=== PATIENT | male | born 1970 | race African-American/Black ===

== ENCOUNTER 2016-12-28 22:30 | Inpatient (IN) | payer SELFPAY ==
[~2016-12-28] VITALS: Ht 177.8 cm; Wt 77.9 kg
[~2016-12-28 22:30] MED LIST: INSU100V2 SQ; METF1000 PO; NOVONP2 SQ
[2016-12-28 22:34] VITALS: BP 158/92; PULSE 110; RESP 20; TEMP 100; O2SAT 98
[2016-12-28] MEDS ORDERED: CLINDAMYCIN INJ 900 MG in SODIUM CHLORIDE 0.9% INJ 100 ML IV ONE (23:30)
[2016-12-28] MEDS ORDERED: KETOROLAC TROMETHAMINE 30 MG/ML (IVP) VIAL IV PUSH ONE (23:30)
[2016-12-28] MEDS ORDERED: SODIUM CHLOR 0.9% 1000 ML INJ 1,000 ML IV ONE (23:30)
[2016-12-28] MEDS ORDERED: INSULIN HUMAN REGULAR 1,000 UNITS/10 ML VIAL IV PUSH ONE (23:30)
[2016-12-28] MEDS ORDERED: ACETAMINOPHEN 325 MG TAB PO ONE (23:30)
[2016-12-28] MEDS ORDERED: SODIUM CHLORIDE 0.9% FLUSH 5 ML FLUSH IVF PRN (23:30)
[2016-12-28 23:35] VITALS: BP 171/96; PULSE 84; RESP 18; O2SAT 96
[2016-12-29] VITALS (13 sets, daily range): BP systolic 100–157; BP diastolic 55–108; PULSE 65–86; RESP 16–20; TEMP 97.3–98.9; O2SAT 97–99
[2016-12-29 00:04] LABS: HEMATOCRIT 48.6 % (39.0-51.0); MEAN CELL VOLUME 86.6 FL (80.0-100.0); MEAN CORPUSCULAR HEMOGLOBIN 28.6 PG (27.0-34.0); PLATELET COUNT 404 TH/MM3 (150-450); RED BLOOD COUNT 5.61 MIL/MM3 (4.50-5.90); RED CELL DISTRIBUTION WIDTH 12.8 % (11.6-17.2); WHITE BLOOD COUNT 15.5 TH/MM3 (4.0-11.0)
[2016-12-29 00:05] LABS: HEMO FLAGS AUTO DIFF
[2016-12-29 00:11] LABS: POTASSIUM 4.1 MEQ/L (3.5-5.1)
[2016-12-29 00:13] LABS: BICARBONATE 25.1 MEQ/L (21.0-32.0)
[2016-12-29 00:25] LABS: MYELOCYTES 1 % (0-0); NEUTROPHIL # MANUAL DIFF 10.4 TH/MM3 (1.8-7.7); POLYS (SEG NEUTROPHILS) 66 % (16-70); WBC DIFF SAMPLE 100
[2016-12-29 00:26] LABS: PLATELET ESTIMATE SMEAR NORMAL (NORMAL); PLATELET MORPHOLOGY CLUMPED (NORMAL); SCAN/DIFF FINAL DIFF MANUAL
--- NOTE | 2016-12-29 01:05 | PD ---
HPI Chief Complaint: Oral / Dental Pain or Problem Time Seen by Provider: 23:24 Travel History International Travel<30 days: No Contact w/Intl Traveler<30days: No Traveled to known affect area: No History of Present Illness HPI 46-year-old male presents to the emergency department for complaint of 4 days of dental/jaw pain and swelling. Patient states symptoms have not improved using [id number] Tylenol. Patient is diabetic. Patient has not followed up with his dentist. Patient denies any difficulty with swallowing or submandibular pain. Patient denies any fever or chills. Patient states that he is diabetic and that his blood sugars have been elevated in the past 4 days but typically run around 200. Patient's had no cold symptoms. Patient denies any chest pain or shortness of breath. Patient's had no nausea or vomiting. Polyphagia or polyuria or polydipsia. Patient rates dental pain/jaw pain 8/10 intensity. PFSH Past Medical History Narrative Medical Dyslipidemia diabetes hypertension tobacco use nursing notes reviewed Blood Disorders: No Cancer: No High Cholesterol: Yes (PT DENIES) Diabetes: Yes Patient Takes Glucophage: Yes Diminished Hearing: No Endocrine: No Gastrointestinal Disorders: No Genitourinary: No Hypertension: Yes Immune Disorder: No Musculoskeletal: No Psychiatric: No Reproductive: No Immunizations Current: Yes Tetanus Vaccination: Unknown Influenza Vaccination: No Past Surgical History Surgical History: No Previous Surgery Other Surgery: No Social History Alcohol Use: No Tobacco Use: Yes (/2 PPD) Substance Use: No (COKE IN THE PAST) Allergies-Medications (Allergen,Severity, Reaction): Coded Allergies: No Known Allergies (Verified , 10/01/16) Reported Meds & Prescriptions Reported Meds & Active Scripts Active Reported Humulin R Inj (Insulin Human Regular) 1,000 Unit/10 Ml Vial 2-12 Units SQ TIDACHS Max dose at bedtime:( )units; sugars < 70 (0)units; sugars 150-199, (2)units; sugars 200-249,(4)units; sugars 250-299, (7)units; sugars 300-349,(10)units; sugars more than 349,(12)units. Metformin (Metformin HCl) 1,000 Mg Tab 1,000 Mg PO BIDPC With meals Novolin N Inj (Insulin Human NPH) 100 Unit/Ml Inj 30 Units SQ BID Review of Systems Except as stated in HPI: all other systems reviewed are Neg General / Constitutional: No: Fever, Chills HENT: Positive: Dental Difficulties, No: Congestion Cardiovascular: No: Chest Pain or Discomfort Respiratory: No: Cough, Shortness of Breath Gastrointestinal: No: Nausea, Vomiting Genitourinary: No: Decreased Urinary Output Musculoskeletal: No: Myalgias, Arthralgias Skin: No Rash Neurologic: No: Weakness Psychiatric: No: Anxiety Hematologic/Lymphatic: No: Lymph Node Enlargement Physical Exam Narrative GENERAL: Well-developed well-nourished male in no acute distress no respiratory distress temperature 100.0F SKIN: Warm and dry. HEAD: Normocephalic. EYES: No scleral icterus. No injection or drainage. ENT mucous membranes moist airway is patent mild gingival soft tissue swelling aligned with the #30 and 31 dentition NECK: Supple, trachea midline. No JVD or lymphadenopathy. CARDIOVASCULAR: Regular rate and rhythm without murmurs, gallops, or rubs. RESPIRATORY: Breath sounds equal bilaterally. No accessory muscle use. GASTROINTESTINAL: Abdomen soft, non-tender, nondistended. MUSCULOSKELETAL: No cyanosis, or edema. BACK: Nontender without obvious deformity. No CVA tenderness. Data Data Last Documented VS Vital Signs Date Time Temp Pulse Resp B/P Pulse Ox O2 Delivery O2 Flow Rate FiO2 12/29/16 02:53 20 12/29/16 02:49 97.8 65 115/65 98 12/29/16 02:49 21 12/29/16 02:15 Room Air Orders Basic Metabolic Panel (Bmp) (12/28/16 23:24) Complete Blood Count With Diff (12/28/16 23:24) Blood Culture (12/28/16 23:24) Iv Access Insert/Monitor (12/28/16 23:24) Sodium Chloride 0.9% Flush (Ns Flush) (12/28/16 23:30) Clindamycin Inj (Cleocin Inj) (12/28/16 23:30) Sodium Chlor 0.9% 1000 Ml Inj (Ns 1000 M (12/28/16 23:30) Acetaminophen (Tylenol) (12/28/16 23:30) Ketorolac Inj (Toradol Inj) (12/28/16 23:30) Insulin Human Regular Inj (Novolin R Inj (12/28/16 23:30) Blood Glucose (12/29/16 00:00) Lactic Acid (12/29/16 01:14) Beta Hydroxybutyrate (Acetone) (12/29/16 01:14) Sodium Chlor 0.9% 1000 Ml Inj (Ns 1000 M (12/29/16 02:30) Blood Gas Venous Ph (12/29/16 02:16) Admit Order (Ed Use Only) (12/29/16 ) ^ Saline Lock (12/29/16 03:07) Resp Oxygen Kevin C Titrat 1-4 L (12/29/16 ) ^ Notify Dr: Other (12/29/16 03:07) Sodium Chloride 0.9% Flush (Ns Flush) (12/29/16 09:00) Sodium Chloride 0.9% Flush (Ns Flush) (12/29/16 03:15) Labs Laboratory Tests Test 12/28/16 12/29/16 12/29/16 23:40 01:30 02:40 White Blood Count 15.5 TH/MM3 Red Blood Count 5.61 MIL/MM3 Hemoglobin 16.0 GM/DL Hematocrit 48.6 % Mean Corpuscular Volume 86.6 FL Mean Corpuscular Hemoglobin 28.6 PG Mean Corpuscular Hemoglobin 33.0 % Concent Red Cell Distribution Width 12.8 % Platelet Count 404 TH/MM3 Mean Platelet Volume 9.0 FL Neutrophils (%) (Auto) % Lymphocytes (%) (Auto) % Monocytes (%) (Auto) % Eosinophils (%) (Auto) % Basophils (%) (Auto) % Neutrophils # (Auto) TH/MM3 Lymphocytes # (Auto) TH/MM3 Monocytes # (Auto) TH/MM3 Eosinophils # (Auto) TH/MM3 Basophils # (Auto) TH/MM3 CBC Comment AUTO DIFF Differential Total Cells 100 Counted Neutrophils % (Manual) 66 % Lymphocytes % 19 % Monocytes % 14 % Neutrophils # (Manual) 10.4 TH/MM3 Myelocytes 1 % Differential Comment FINAL DIFF MANUAL Platelet Estimate NORMAL Platelet Morphology Comment CLUMPED Red Cell Morphology Comment NORMAL Sodium Level 133 MEQ/L Potassium Level 4.1 MEQ/L Chloride Level 95 MEQ/L Carbon Dioxide Level 25.1 MEQ/L Anion Gap 13 MEQ/L Blood Urea Nitrogen 21 MG/DL Creatinine 1.40 MG/DL Estimat Glomerular Filtration 67 ML/MIN Rate Random Glucose 410 MG/DL Calcium Level 9.5 MG/DL Lactic Acid Level 0.9 mmol/L B-Hydroxybutyrate 1.17 MMOL/L Venous Blood pH 7.33 [facility] Medical Decision Making Medical Screen Exam Complete: Yes Emergency Medical Condition: Yes Medical Record Reviewed: Yes Interpretation(s) CBC & BMP Diagram 12/28/16 23:40 venous pH: 7.33, decreased lactic acid:0.9, wnl bhb: 1.17, elevated Differential Diagnosis Dental abscess, gingival abscess, apical abscess, dentalgia, uncontrolled diabetes, DKA Narrative Course IV access obtained specimens collected and sent for resulting blood culture obtained due to temperature 100.0F; patient administered clindamycin 900 mg IV piggyback, Toradol 30 mg IV times one dose 1 L normal saline and in view of blood sugar elevation regular insulin 8 units IV with plan for blood sugar recheck at one hour after administration of IV insulin @ 0100 BS decreased to 323 from 438; ivf infusing and antibiotic being administered; patient reports he fells much better Labs resulted based on white count 15,500 and heart rate greater than 90 patient does meet SIRS criteria and patient also with area of dental infection/ dental abscess as source meets sepsis criteria and as such lactic acid added as well as beta hydroxybutyric acid level be added to labs. Patient continued to receive IV antibiotic and IV fluid bolus has not completely infused. Patient will have recheck blood sugar at 2 AM @ 2:14 B; lactic acid is not elevated at 0.9; acetone is elevated at 1.17 , however, patient's bicarbonate is within normal range at 25.1 meq/l and anion gap is not elevated at 13 meq/l. VSS: T:98.1F, RR: 18, HR:87, O2sat 99% RA; BP: 104/73; Patient reports he is desirous of being discharged to home is aware of lab results response to medications and has access to home medications although needs refills of his insulin and metformin; prior to making disposition will check a venous pH; patient reports at this time he has not been taking his metformin and insulin because he was taking tylenol and was afraid to "mix medications". @ 3:00 pH: 7.33, patient with decreased/acidotic pH with elevated acetone and not taking his insulin or metformin with dental abscess/infection -- will admit for metabolic correction, dehydration, early dka and ongoing iv antibiotics Procedures EKG Prior to Arrival: No Sepsis Criteria SIRS Criteria (2 or more): Heart rate over 90, WBC > 63484, < 4000 or > 10% bands Sepsis Criteria (SIRS+source): Infect source susp/known (dental abscess) Criteria Outcome: Meets SIRS criteria, Meets sepsis criteria Physician Communication Physician Communication case discussed with [facility] will admit as obs Diagnosis Primary Impression: Dental abscess Additional Impressions: Poorly controlled diabetes mellitus Dehydration Admitting Information Admitting Physician Requests: Observation Brianda Murillo MD Dec 29, 2016 01:05
[2016-12-29] MEDS ORDERED: SODIUM CHLOR 0.9% 1000 ML INJ 1,000 ML IV ONE (02:30)
[2016-12-29] MEDS ORDERED: SODIUM CHLORIDE 0.9% FLUSH 5 ML FLUSH IVF PRN (03:15)
[2016-12-29] MEDS: SODIUM CHLOR 0.9% 1000 ML INJ 1,000 ML IV SCH ×3 (03:51→17:11)
[2016-12-29] MEDS ORDERED: BISACODYL 10 MG SUPP PR PRN (04:00)
[2016-12-29] MEDS ORDERED: ONDANSETRON HCL 4 MG/2 ML VIAL IVP PRN (04:00)
[2016-12-29] MEDS ORDERED: ACETAMINOPHEN 325 MG TAB PO PRN (04:00)
[2016-12-29] MEDS ORDERED: SODIUM CHLORIDE 0.9% FLUSH 5 ML FLUSH FLUSH PRN (04:00)
[2016-12-29] MEDS ORDERED: DEXTROSE 50% IN WATER 50 ML VIAL(D50) IV PUSH PRN (04:00)
[2016-12-29] MEDS ORDERED: GLUCAGON 1 MG/ML VIAL OTHER PRN (04:00)
[2016-12-29] MEDS: ACETAMINOPHEN/HYDROcodone 325 MG/5 MG TAB PO PRN ×3 (05:07→20:48)
[2016-12-29] MEDS: INSULIN ASPART SUPPLEMENTAL SCALE SQ SCH ×4 (06:06→20:58)
[2016-12-29] MEDS ORDERED: CLINDAMYCIN INJ 900 MG in SODIUM CHLORIDE 0.9% INJ 100 ML IV SCH (08:00)
[2016-12-29 08:37] LABS: HEMATOCRIT 40.8 % (39.0-51.0); MEAN CELL VOLUME 87.1 FL (80.0-100.0); MEAN CORPUSCULAR HEMOGLOBIN 28.9 PG (27.0-34.0); MEAN CORPUSCULAR HGB CONC 33.2 % (32.0-36.0); PLATELET COUNT 395 TH/MM3 (150-450); RED BLOOD COUNT 4.68 MIL/MM3 (4.50-5.90); RED CELL DISTRIBUTION WIDTH 13.2 % (11.6-17.2); WHITE BLOOD COUNT 15.8 TH/MM3 (4.0-11.0)
[2016-12-29 08:41] LABS: HEMO FLAGS AUTO DIFF
[2016-12-29] MEDS: SODIUM CHLORIDE 0.9% FLUSH 5 ML FLUSH FLUSH SCH ×2 (09:00→19:52)
[2016-12-29] MEDS ORDERED: SODIUM CHLORIDE 0.9% FLUSH 5 ML FLUSH IVF SCH (09:00)
[2016-12-29 09:08] LABS: ALKALINE PHOSPHATASE 120 U/L (45-117); ALT (GPT) 22 U/L (12-78); ANION GAP 8 MEQ/L (5-15); AST (GOT) 13 U/L (15-37); BICARBONATE 23.6 MEQ/L (21.0-32.0); BLOOD UREA NITROGEN 14 MG/DL (7-18); CHLORIDE 104 MEQ/L (98-107); GLOMERULAR FILTRATION RATE 122 ML/MIN (>89); POTASSIUM 4.1 MEQ/L (3.5-5.1); SODIUM (NA) 136 MEQ/L (136-145); TOTAL BILIRUBIN ADULT 1.1 MG/DL (0.2-1.0)
[2016-12-29] MEDS ORDERED: KETOROLAC TROMETHAMINE 60 MG/2 ML (IM) VIAL IM PRN ×2 (09:15→10:15)
[2016-12-29 09:57] LABS: BASOPHILS 1 % (0-2); EOSINOPHILS 1 % (0-4); NEUTROPHIL # MANUAL DIFF 10.3 TH/MM3 (1.8-7.7); POLYS (SEG NEUTROPHILS) 65 % (16-70); WBC DIFF SAMPLE 100
[2016-12-29 09:58] LABS: PLATELET ESTIMATE SMEAR NORMAL (NORMAL); PLATELET MORPHOLOGY NORMAL (NORMAL); SCAN/DIFF FINAL DIFF MANUAL
[2016-12-29] MEDS: CLINDAMYCIN INJ 900 MG in SODIUM CHLORIDE 0.9% INJ 100 ML IV SCH ×2 (10:18→18:18)
[2016-12-29] MEDS ORDERED: KETOROLAC TROMETHAMINE 30 MG/ML (IVP) VIAL IV PUSH ONE (10:30)
--- NOTE | 2016-12-29 10:33 | HHI.HP ---
HPI Service [facility] Primary Care Physician No Primary Care Physician Admission Diagnosis dental abscess; uncontrolled DM/early dka Diagnoses: Chief Complaint: Jaw pain Travel History International Travel<30 Days: No Contact w/Intl Traveler <30 Da: No Traveled to Known Affected Are: No Sepsis Criteria SIRS Criteria (2 or more): WBC > 33882, < 4000 or > 10% bands Sepsis Criteria (SIRS+source): Infect source susp/known Severe Sepsis (+one): Acute Oliguria/Renal Failure History of Present Illness Patient is a 46-year-old gentleman with diabetes who had about 5 days of right sided jaw pain which he says is related to a dental abscess. Visit took Tylenol at home without relief and can have increased swelling and increased pain so he came to the emergency room. Patient has had low-grade temperatures at home and here his symptoms been 100. He is leukocytosis and tachycardia with elevated blood pressure. Patient admitted to the hospital for IV antibiotics and treatment of presumed dental abscess as well as hyperglycemia. His severe right sided jaw pain is relieved with Toradol and with morphine. Review of Systems Constitutional: COMPLAINS OF: Fatigue, Weight loss, DENIES: Diaphoretic episodes, Fever, Weight gain, Chills, Dizziness, Change in appetite, Night Sweats Endocrine: DENIES: Heat/cold intolerance, Polydipsia, Polyuria, Polyphagia Eyes: DENIES: Blurred vision, Diplopia, Eye inflammation, Eye pain, Vision loss , Photosensitivity, Double Vision Ears, nose, mouth, throat: DENIES: Tinnitus, Hearing loss, Vertigo, Nasal discharge, Oral lesions, Throat pain, Hoarseness, Ear Pain, Running Nose, Epistaxis, Sinus Pain, Toothache, Odynophagia Respiratory: DENIES: Apneas, Cough, Snoring, Wheezing, Hemoptysis, Sputum production, Shortness of breath Cardiovascular: DENIES: Chest pain, Palpitations, Syncope, Dyspnea on Exertion , PND, Lower Extremity Edema, Orthopnea, Claudication Gastrointestinal: DENIES: Abdominal pain, Black stools, Bloody stools, Constipation, Diarrhea, Nausea, Vomiting, Difficulty Swallowing, Anorexia Genitourinary: DENIES: Sexual dysfunction, Urinary frequency, Urinary incontinence, Urgency, Hematuria, Dysuria, Nocturia, Penile Discharge, Testicular Pain, Testicular Swelling Musculoskeletal: COMPLAINS OF: Muscle aches, Joint Swelling, DENIES: Joint pain, Stiffness, Back pain, Neck pain Integumentary: DENIES: Abnormal pigmentation, Nail changes, Pruritus, Rash Hematologic/lymphatic: DENIES: Bruising, Lymphadenopathy Immunologic/allergic: DENIES: Eczema, Urticaria Neurologic: DENIES: Abnormal gait, Headache, Localized weakness, Paresthesias, Seizures, Speech Problems, Tremor, Poor Balance Psychiatric: DENIES: Anxiety, Confusion, Mood changes, Depression, Hallucinations, Agitation, Suicidal Ideation, Homicidal Ideation, Delusions Past Family Social History Past Medical History DM2 Past Surgical History Denies Reported Medications Reviewed in the EMR Allergies: Coded Allergies: No Known Allergies (Verified , 10/01/16) Active Ordered Medications Reviewed in the EMR Family History DM in Mom Dad of colon CA Social History Tobacco 12/01 ppd no etoh lives with friends Physical Exam Vital Signs Vital Signs Date Time Temp Pulse Resp B/P Pulse Ox O2 Delivery O2 Flow Rate FiO2 12/29/16 09:59 18 12/29/16 09:36 97 21 12/29/16 08:57 98.0 70 18 157/108 99 12/29/16 05:27 69 12/29/16 04:27 69 20 119/72 98 12/29/16 04:00 97.3 76 18 140/92 99 12/29/16 02:53 20 12/29/16 02:49 97.8 65 20 115/65 98 12/29/16 02:49 98 21 12/29/16 02:15 68 16 104/73 97 Room Air 12/29/16 01:35 72 16 100/55 98 Room Air 12/29/16 01:00 18 12/29/16 01:00 18 12/29/16 00:35 86 16 125/76 97 Room Air 12/28/16 23:35 84 18 171/96 96 Room Air 12/28/16 23:15 86 18 12/28/16 22:34 100.0 110 20 158/92 98 Physical Exam GENERAL: This is a well-nourished, well-developed patient, in no apparent distress. SKIN: No rashes, ecchymoses or lesions. Cool and dry. HEAD: Atraumatic. Normocephalic. No temporal or scalp tenderness. EYES: Pupils equal round and reactive. Extraocular motions intact. No scleral icterus. No injection or drainage. ENT: Nose without bleeding, purulent drainage or septal hematoma. Throat without erythema, tonsillar hypertrophy or exudate. Uvula midline. Airway patent. NECK: Trachea midline. No JVD or lymphadenopathy. Supple, nontender, no meningeal signs. CARDIOVASCULAR: Regular rate and rhythm without murmurs, gallops, or rubs. RESPIRATORY: Clear to auscultation. Breath sounds equal bilaterally. No wheezes , rales, or rhonchi. GASTROINTESTINAL: Abdomen soft, non-tender, nondistended. No hepato-splenomegaly , or palpable masses. No guarding. MUSCULOSKELETAL: Extremities without clubbing, cyanosis, or edema. No joint tenderness, effusion, or edema noted. No calf tenderness. Negative Homans sign bilaterally. NEUROLOGICAL: Awake and alert. Cranial nerves II through XII intact. Motor and sensory grossly within normal limits. Five out of 5 muscle strength in all muscle groups. Normal speech. Laboratory Laboratory Tests Test 12/28/16 12/29/16 12/29/16 12/29/16 23:40 01:30 02:40 07:30 White Blood Count 15.5 15.8 Red Blood Count 5.61 4.68 Hemoglobin 16.0 13.5 Hematocrit 48.6 40.8 Mean Corpuscular Volume 86.6 87.1 Mean Corpuscular Hemoglobin 28.6 28.9 Mean Corpuscular Hemoglobin 33.0 33.2 Concent Red Cell Distribution Width 12.8 13.2 Platelet Count 404 395 Mean Platelet Volume 9.0 8.5 Neutrophils (%) (Auto) Lymphocytes (%) (Auto) Monocytes (%) (Auto) Eosinophils (%) (Auto) Basophils (%) (Auto) Neutrophils # (Auto) Lymphocytes # (Auto) Monocytes # (Auto) Eosinophils # (Auto) Basophils # (Auto) CBC Comment AUTO DIFF AUTO DIFF Differential Total Cells 100 100 Counted Neutrophils % (Manual) 66 65 Lymphocytes % 19 30 Monocytes % 14 3 Neutrophils # (Manual) 10.4 10.3 Myelocytes 1 Differential Comment FINAL DIFF FINAL DIFF MANUAL MANUAL Platelet Estimate NORMAL NORMAL Platelet Morphology Comment CLUMPED NORMAL Red Cell Morphology Comment NORMAL NORMAL Sodium Level 133 136 Potassium Level 4.1 4.1 Chloride Level 95 104 Carbon Dioxide Level 25.1 23.6 Anion Gap 13 8 Blood Urea Nitrogen 21 14 Creatinine 1.40 0.83 Estimat Glomerular Filtration 67 122 Rate Random Glucose 410 300 Calcium Level 9.5 8.6 Lactic Acid Level 0.9 B-Hydroxybutyrate 1.17 Venous Blood pH 7.33 Eosinophils % 1 Basophils % 1 Total Bilirubin 1.1 Aspartate Amino Transf 13 (AST/SGOT) Alanine Aminotransferase 22 (ALT/SGPT) Alkaline Phosphatase 120 Total Protein 7.1 Albumin 2.9 Date/Time Procedure Status Source Growth 12/28/16 23:46 Aerobic Blood Culture Received Blood Peripheral Pending 12/28/16 23:46 Anaerobic Blood Culture Received Blood Peripheral Pending Result Diagram: 12/29/16 0730 12/29/16 0730 Assessment and Plan Problem List: (1) Dental abscess ICD Code: K04.7 Status: Acute Plan: With Increased WBC's and right sided jaw deformity MRI pending cont Clinda IV IV morphine/toradol Patient may need Oral Surgery follow up and may need to be transferred to another facility (2) Poorly controlled diabetes mellitus ICD Code: E11.65 Status: Acute Plan: Cont home meds Poor (3) RENÉE (acute kidney injury) ICD Code: N17.9 Status: Acute Plan: Likely prerenal, resolved with IV hydration. Continue with IV fluids Code Status full Discussed Condition With patient, Kaitlynn Paula MD Dec 29, 2016 10:33
[2016-12-29] MEDS: MORPHINE SULFATE 4 MG/ML INJ IV PRN ×2 (15:11→19:52)
[2016-12-29] MEDS ORDERED: GADODIAMIDE PF 287 MG/ML 5 ML VIAL (for RAD MRI) IV ONE (16:10)
[2016-12-29] MEDS: KETOROLAC TROMETHAMINE 30 MG/ML (IVP) VIAL IV PUSH PRN ×2 (16:33→22:06)
--- NOTE | 2016-12-29 16:43 | RADHPO ---
EXAM DATE/TIME: 12/29/2016 15:44 [facility] COMPARISON: No previous studies available for comparison. INDICATIONS : Dental abscess. Right side of face from below orbit to mandible. CONTRAST: 15 cc Omniscan (gadodiamide) IV MEDICAL HISTORY : Hypercholesterolemia. Cardiovascular disease Asthma. Diabetes. SURGICAL HISTORY : None. ENCOUNTER: Subsequent ACUITY: 4-6 days PAIN SCORE: 5/10 LOCATION: facial TECHNIQUE: Multi-weighted, multi-axial MR images of the facial soft tissue both before and after the administrat ion of intravenous contrast. FINDINGS: Adjacent to the body of the right mandible with mild cortical erosion is a 2.5 cm inhomogeneous area of soft tissue density with enhancement and surrounding edema in deep and superficial soft tissues mo st consistent with a abscess. No adenopathy is appreciated. CONCLUSION: 2.5 cm homogeneous there is soft tissue density with enhancement and surrounding deep and superficial soft tissue edema is consistent with abscess associated with mild erosion of the lateral margin of t he mandible. Freddy Vitale MD on December 29, 2016 at 16:30 Board Certified Radiologist. This report was verified electronically.
[2016-12-29 20:17] LABS: BLOOD, URINE NEG (NEG); KETONE, URINE 40 mg/dL (NEG); NITRITE,URINE NEG (NEG); PH, URINE 5.5 (5.0-8.5)
[2016-12-29 20:38] LABS: GLUCOSE,URINE 1000 OR GREATER mg/dL (NEG)
[2016-12-29 20:39] LABS: COMMENT (UR) CULT NOT INDICATED; CULTURE IF INDICATED CULT NOT INDICATED; RBC, URINE 0-3 /hpf (0-3); SQUAMOUS EPITHELIAL CELL URINE 0-5 /hpf (0-5); URINE COLOR YELLOW (YELLW/STRAW); WBC, URINE 0-2 /hpf (0-5)
[2016-12-29] MEDS: INSULIN HUMAN NPH 1,000 UNITS/10 ML VIAL SQ SCH (20:59)
[2016-12-30] VITALS: BP 135/89; PULSE 81; RESP 18; TEMP 97.2; O2SAT 96
[2016-12-30] MEDS: MORPHINE SULFATE 4 MG/ML INJ IV PRN ×2 (00:36→06:44)
[2016-12-30] MEDS: SODIUM CHLOR 0.9% 1000 ML INJ 1,000 ML IV SCH ×4 (02:29→18:26)
[2016-12-30] MEDS: CLINDAMYCIN INJ 900 MG in SODIUM CHLORIDE 0.9% INJ 100 ML IV SCH ×3 (02:29→18:26)
[2016-12-30] MEDS: ACETAMINOPHEN/HYDROcodone 325 MG/5 MG TAB PO PRN (02:33)
[2016-12-30] MEDS: KETOROLAC TROMETHAMINE 30 MG/ML (IVP) VIAL IV PUSH PRN ×4 (04:16→22:25)
[2016-12-30 06:31] LABS: AUTOMATED NEUTROPHIL # 9.7 TH/MM3 (1.8-7.7); BASOPHIL # 0.1 TH/MM3 (0-0.2); BASOPHIL % 0.9 % (0.0-2.0); EOSINOPHIL # 0.3 TH/MM3 (0-0.4); EOSINOPHIL % 2.1 % (0.0-4.0); HEMATOCRIT 38.5 % (39.0-51.0); LYMPHOCYTE # 2.3 TH/MM3 (1.0-4.8); MEAN CELL VOLUME 87.8 FL (80.0-100.0); MEAN CORPUSCULAR HEMOGLOBIN 29.2 PG (27.0-34.0); MEAN CORPUSCULAR HGB CONC 33.2 % (32.0-36.0); MONO % 7.8 % (0.0-8.0); NEUT % 72.2 % (16.0-70.0); PLATELET COUNT 359 TH/MM3 (150-450); RED BLOOD COUNT 4.38 MIL/MM3 (4.50-5.90); RED CELL DISTRIBUTION WIDTH 12.9 % (11.6-17.2); WHITE BLOOD COUNT 13.4 TH/MM3 (4.0-11.0)
[2016-12-30 06:32] LABS: HEMO FLAGS AUTO DIFF
[2016-12-30 06:42] LABS: POTASSIUM 3.9 MEQ/L (3.5-5.1)
[2016-12-30] MEDS: INSULIN ASPART SUPPLEMENTAL SCALE SQ SCH ×4 (06:43→21:02)
[2016-12-30 06:46] LABS: BICARBONATE 27.1 MEQ/L (21.0-32.0)
[2016-12-30 07:23] LABS: SCAN/DIFF AUTO DIFF CONFIRMED
[2016-12-30 08:00] VITALS: BP 128/81; PULSE 77; RESP 18; TEMP 97.8; O2SAT 99
[2016-12-30] MEDS: SODIUM CHLORIDE 0.9% FLUSH 5 ML FLUSH FLUSH SCH ×2 (09:00→20:53)
[2016-12-30] MEDS: INSULIN HUMAN NPH 1,000 UNITS/10 ML VIAL SQ SCH ×2 (09:27→21:02)
--- NOTE | 2016-12-30 10:34 | HHI.PR ---
Subjective Remarks Seen and evaluated today in follow-up for dental abscess. Patient doing better with pain management and with antibiotics. Patient will need to be transferred to another facility with a oral surgeon consult for his abscess. Patient agreeable. Discussed with case management. Objective Vitals Vital Signs Date Time Temp Pulse Resp B/P Pulse Ox O2 Delivery O2 Flow Rate FiO2 12/30/16 08:00 97.8 77 18 128/81 99 12/30/16 00:00 97.2 81 18 135/89 96 12/29/16 22:06 18 12/29/16 20:47 18 12/29/16 20:00 98.9 78 18 149/90 98 12/29/16 16:00 98.0 75 19 132/78 97 12/29/16 12:10 98.0 71 18 137/84 99 12/29/16 11:44 18 I/O 12/29/16 12/29/16 12/29/16 12/30/16 12/30/16 12/30/16 07:00 15:00 23:00 07:00 15:00 23:00 Intake Total 2552 ml 680 ml 2400 ml Output Total 800 ml 650 ml 800 ml Balance 1752 ml -650 ml 680 ml 1600 ml Intake Oral 680 ml IV Total 2552 ml 2400 ml Output Urine Total 650 ml 800 ml Other 800 ml # Voids 2 1 # Bowel Movements 0 Result Diagram: 12/30/16 0607 12/30/16 0607 Imaging Last Impressions Face MRI 12/29/16 0000 Signed Impressions: Service Date/Time: Thursday, December 29, 2016 15:44 - CONCLUSION: 2.5 cm homogeneous there is soft tissue density with enhancement and surrounding deep and superficial soft tissue edema is consistent with abscess associated with mild erosion of the lateral margin of the mandible. Freddy Vitale MD Objective Remarks Right jaw deformity and swelling GENERAL: This is a well-nourished, well-developed patient, in no apparent distress. CARDIOVASCULAR: Regular rate and rhythm without murmurs, gallops, or rubs. RESPIRATORY: Clear to auscultation. Breath sounds equal bilaterally. No wheezes , rales, or rhonchi. GASTROINTESTINAL: Abdomen soft, non-tender, nondistended. Normal active bowel sounds MUSCULOSKELETAL: Extremities without clubbing, cyanosis, or edema. NEURO: Alert & Oriented x4 to person, place, time, situation. Moves all ext x4 A/P Problem List: (1) Dental abscess ICD Code: K04.7 Status: Acute Plan: With Increased WBC's and right sided jaw deformity MRI shows abscess and possible erosion cont Clinda IV IV morphine/toradol Will transfer to other facility for OMF eval (2) Poorly controlled diabetes mellitus ICD Code: E11.65 Status: Acute Plan: Cont home meds HG a1c Pending (3) RENÉE (acute kidney injury) ICD Code: N17.9 Status: Resolved Plan: Likely prerenal, resolved with IV hydration. Continue with IV fluids Discharge Planning transfer to other facility for OMF surgery Kaitlynn Garza MD Dec 30, 2016 10:34
[2016-12-30 12:00] VITALS: BP 120/81; PULSE 69; RESP 18; TEMP 98; O2SAT 98
[2016-12-30 12:57] LABS: HEMOGLOBIN A1a 1.6 %; HEMOGLOBIN A1b 1.2 %; HEMOGLOBIN F 2.6 %; HEMOGLOBIN LA1C 3.4 %; HEMOGLOBIN P3 5.3 %
[2016-12-30 16:00] VITALS: BP 127/80; PULSE 68; RESP 18; TEMP 98.2; O2SAT 96
[2016-12-30 20:00] VITALS: BP 111/68; PULSE 67; RESP 20; TEMP 98.3; O2SAT 99
[2016-12-31] VITALS: BP 122/71; PULSE 63; RESP 20; TEMP 98; O2SAT 97
[2016-12-31] MEDS: CLINDAMYCIN INJ 900 MG in SODIUM CHLORIDE 0.9% INJ 100 ML IV SCH ×3 (02:04→17:18)
[2016-12-31] MEDS: INSULIN ASPART SUPPLEMENTAL SCALE SQ SCH ×4 (06:49→21:00)
[2016-12-31] MEDS: SODIUM CHLOR 0.9% 1000 ML INJ 1,000 ML IV SCH ×3 (07:33→20:59)
[2016-12-31] MEDS: KETOROLAC TROMETHAMINE 30 MG/ML (IVP) VIAL IV PUSH PRN ×3 (07:34→21:08)
[2016-12-31 08:00] VITALS: BP 108/62; PULSE 69; RESP 17; TEMP 97.8; O2SAT 98
[2016-12-31] MEDS: INSULIN HUMAN NPH 1,000 UNITS/10 ML VIAL SQ SCH ×2 (08:35→21:00)
[2016-12-31] MEDS: SODIUM CHLORIDE 0.9% FLUSH 5 ML FLUSH FLUSH SCH ×2 (09:00→20:59)
[2016-12-31] MEDS ORDERED: METF1000 PO (10:23)
[2016-12-31] MEDS ORDERED: NOVONP2 SQ (10:23)
--- NOTE | 2016-12-31 10:24 | HHI.PR ---
Subjective Remarks Patient still has right jaw pain and swelling, but pain is improving. GLucose trend improved. Patient states he does not have insulin at home. Objective Vitals Vital Signs Date Time Temp Pulse Resp B/P Pulse Ox O2 Delivery O2 Flow Rate FiO2 12/31/16 08:00 97.8 69 17 108/62 98 12/31/16 00:00 98.0 63 20 122/71 97 12/30/16 23:25 18 12/30/16 20:00 98.3 67 20 111/68 99 12/30/16 16:00 98.2 68 18 127/80 96 12/30/16 12:00 98.0 69 18 120/81 98 I/O 12/30/16 12/30/16 12/30/16 12/31/16 12/31/16 12/31/16 07:00 15:00 23:00 07:00 15:00 23:00 Intake Total 2400 ml 725 ml 480 ml 240 ml Output Total 800 ml Balance 1600 ml 725 ml 480 ml 240 ml Intake Oral 725 ml 480 ml 240 ml IV Total 2400 ml Output Urine Total 800 ml # Voids 1 3 1 2 # Bowel Movements 0 0 0 Result Diagram: 12/30/16 0607 12/30/16 0607 Objective Remarks GENERAL: Well-nourished, well-developed middle aged male patient. SKIN: Warm and dry. HEAD: Normocephalic. right mandibular swelling, able to open mouth nearly completely, airway intact. EYES: No scleral icterus. No injection or drainage. NECK: Supple, trachea midline. No JVD or lymphadenopathy. CARDIOVASCULAR: Regular rate and rhythm without murmurs, gallops, or rubs. RESPIRATORY: Breath sounds equal bilaterally. No accessory muscle use. GASTROINTESTINAL: Abdomen soft, non-tender, nondistended. EXTREMITIES: No cyanosis, or edema. NEUROLOGICAL: Awake, alert, and oriented x 3. Non-focal. A/P Problem List: (1) Dental abscess ICD Code: K04.7 Status: Acute (2) Poorly controlled diabetes mellitus ICD Code: E11.65 Status: Acute (3) RENEÉ (acute kidney injury) ICD Code: N17.9 Status: Resolved Assessment and Plan -Type 1 DM, poor controlled - improving with SQ insulin, A1c 14%. Arranging patient outpatient followup at [facility] and insulin prescriptions. -Right mandibular abscess with erosion into mandible seen on facial MRI - discussed with Dr. Husam DDS - he requests maxillofacial CT and will see patient in consultation today. Cont IV antibitoics, monitor WBC trend. -RENÉE - resolving. -Anemia - likely dilutional - repeat CBC in a.m. -DVT px - SCDs. Monae Robbins MD Dec 31, 2016 10:24
[2016-12-31] MEDS: METFORMIN HOLD POST IV CONTRAST XX SCH (10:45)
[2016-12-31] MEDS ORDERED: IOHEXOL 350 MG/ML 10 ML VIAL (for RAD DIAG) IV ONE (10:49)
--- NOTE | 2016-12-31 11:12 | RADHPO ---
EXAM DATE/TIME: 12/31/2016 10:39 [facility] COMPARISON: MRI FACIAL SOFT TISSUE W & W/O CONTRAST, December 29, 2016, 15:44. INDICATIONS : Status of right sided facial abscess with antiobiotic treatment. Minimal improvement since recent MRI . IV CONTRAST: 95 cc Omnipaque 350 (iohexol) IV RADIATION DOSE: 30.14 CTDIvol (mGy) MEDICAL HISTORY : Hypercholesterolemia. Cardiovascular disease Diabetes. SURGICAL HISTORY : None. ENCOUNTER: Initial ACUITY: 4 - 6 days PAIN SCALE: 0/10 LOCATION: Right facial TECHNIQUE: Volumetric scanning of the facial bones was performed. Using automated exposure control and adjustme nt of the mA and/or kV according to patient size, radiation dose was kept as low as reasonably achiev able to obtain optimal diagnostic quality images. FINDINGS: Comparison MRI from December 29. There is persistent abnormal soft tissue swelling and complex fluid a djacent to the body of the right mandible. This area measures about 2.1 cm in thickness which is den lar to recent MR measurement of about 2.2 cm. The complex fluid collection is not as well delineated on CT. There is a periapical lucency around 2 mandibular molars on the right side with a focal erosio n through the lateral cortex of the mandible on the right. There is also some periapical lucency in t he left posterior mandibular molar. Paranasal sinuses are clear. No acute fracture. CONCLUSION: 1. Abnormal soft tissue swelling and complex fluid collection adjacent to the body of the right isaac ble. Overall thickness similar to recent MRI. Focal bony erosion through the lateral cortex of the ri ght mandible associated with periapical lucency, most characteristic of periapical abscess. Ash Navarro MD on December 31, 2016 at 11:02 Board Certified Radiologist. This report was verified electronically.
[2016-12-31 12:00] VITALS: BP 110/63; PULSE 65; RESP 18; TEMP 97.6; O2SAT 99
--- NOTE | 2016-12-31 15:17 | MB ---
cc: YOVANNY WEINER DDS DATE OF CONSULTATION: 12/31/2016 DATE OF : 1970 CHIEF COMPLAINT "My face is swollen and I have tooth pain." HISTORY OF PRESENT ILLNESS Mr. Wilcox is a 46-year-old male who presented to the [facility] in [place] with a complaint of five days of right-sided jaw pain which he said was related to his tooth. The patient states that he took pain medication without relief and continued to have swelling and increased pain. The patient stated that he also had a low grade temperature of approximately 100 degrees. The patient was admitted to the hospital for IV antibiotics and for possible treatment of dental abscess as well as hyperglycemia. The patient was seen this afternoon resting comfortably in bed, eating and drinking in no acute distress. PAST MEDICAL HISTORY The patient has a history of diabetes type 2. PAST SURGICAL HISTORY Denies. ALLERGIES No known drug allergies. SOCIAL HISTORY He smokes approximately a half pack of cigarettes a day. He denies any alcohol use. He lives with a friend. PHYSICAL EXAMINATION GENERAL: This is a well-nourished, well-developed patient in no apparent distress. SKIN: Warm and dry. No rashes. HEAD: Atraumatic and normocephalic. EYES: Pupils equal, round and reactive to light and accommodation. Extraocular muscles intact. NOSE: Nasal complex intact. No epistaxis. EARS: Ears are intact with no drainage. MAXILLOFACIAL EXAM: The patient has mild to moderate edema of the lower third of the right face with tenderness to palpation in the buccal region. Maximal incisal opening is approximately 40 mm. There is no significant swelling of the buccal vestibule on the right side, however, there is some erythema of the soft tissue of the gingiva associated with tooth #30. The floor of mouth is not swollen. Airway is patent. NECK: Trachea is midline. No JVD or lymphadenopathy. IMAGING Radiographically maxillofacial CT shows abnormal soft tissue swelling and complex fluid collection adjacent to the body of the right mandible. There is noted focal bony erosion through the lateral cortex of the right mandible associated with a periapical lucency most characteristic of periapical abscess. LABORATORY His most recent lab work which is 12/30/2016, white blood cell count 13.4, hemoglobin 12.8, hematocrit 38.5, platelet count 72.2, neutrophils 9.7. ASSESSMENT This is a 46-year-old male with a buccal abscess secondary to tooth #30. PLAN Patient is to continue IV antibiotics for one more night and the patient is to be discharged in the morning for follow-up at [facility] with Dr. Weiner or one of his associates for surgical extraction of tooth #30 with possible incision and drainage as an outpatient. Please discharge the patient with oral antibiotics for 7 days. Also please discharge the patient with pain medication. Please continue the patient's current management of his diabetes type 2. WINSTON Alberto/AMANDA /2:19 PM /2:57 PM
[2016-12-31 16:00] VITALS: BP 107/71; PULSE 68; RESP 18; TEMP 97.7; O2SAT 97
[2016-12-31 20:00] VITALS: BP 109/65; PULSE 67; RESP 20; TEMP 98.7; O2SAT 96
[2017-01-01] VITALS: BP 121/83; PULSE 61; RESP 20; TEMP 97.5; O2SAT 97
[2017-01-01] MEDS: CLINDAMYCIN INJ 900 MG in SODIUM CHLORIDE 0.9% INJ 100 ML IV SCH ×2 (02:00→09:02)
[2017-01-01] MEDS: SODIUM CHLOR 0.9% 1000 ML INJ 1,000 ML IV SCH ×2 (06:30→11:51)
[2017-01-01] MEDS: INSULIN ASPART SUPPLEMENTAL SCALE SQ SCH ×2 (06:34→12:16)
[2017-01-01 08:00] VITALS: BP 130/76; PULSE 64; RESP 18; TEMP 98.3; O2SAT 97
[2017-01-01] MEDS ORDERED: HYDR-3516 PO (08:21)
[2017-01-01] MEDS ORDERED: CLIN1CAP6 PO (08:21)
[2017-01-01] MEDS: SODIUM CHLORIDE 0.9% FLUSH 5 ML FLUSH FLUSH SCH (09:00)
[2017-01-01] MEDS: INSULIN HUMAN NPH 1,000 UNITS/10 ML VIAL SQ SCH (09:02)
[2017-01-01] MEDS: METFORMIN HOLD POST IV CONTRAST XX SCH (09:05)
--- NOTE | 2017-01-01 10:25 | HHI.DS ---
Discharge Summary Admission Date Dec 29, 2016 at 10:33 Discharge Date: Jan 01, 2017 Admitting Diagnosis dental abscess; uncontrolled DM/early dka (1) Dental abscess ICD Code: K04.7 (2) Poorly controlled diabetes mellitus ICD Code: E11.65 (3) RENÉE (acute kidney injury) ICD Code: N17.9 Procedures None Brief History - From Admission Patient is a 46-year-old gentleman with diabetes who had about 5 days of right sided jaw pain which he says is related to a dental abscess. Visit took Tylenol at home without relief and can have increased swelling and increased pain so he came to the emergency room. Patient has had low-grade temperatures at home and here his symptoms been 100. He is leukocytosis and tachycardia with elevated blood pressure. Patient admitted to the hospital for IV antibiotics and treatment of presumed dental abscess as well as hyperglycemia. His severe right sided jaw pain is relieved with Toradol and with morphine. CBC/BMP: 12/30/16 0607 12/30/16 0607 Significant Findings Laboratory Tests Test 12/29/16 12/30/16 19:55 06:07 Urine Glucose (UA) 1000 OR GREATER mg/dL (NEG) Urine Ketones 40 mg/dL (NEG) White Blood Count 13.4 TH/MM3 (4.0-11.0) Red Blood Count 4.38 MIL/MM3 (4.50-5.90) Hemoglobin 12.8 GM/DL (13.0-17.0) Hematocrit 38.5 % (39.0-51.0) Neutrophils (%) (Auto) 72.2 % (16.0-70.0) Neutrophils # (Auto) 9.7 TH/MM3 (1.8-7.7) Monocytes # (Auto) 1.0 TH/MM3 (0-0.9) Chloride Level 109 MEQ/L (98-107) Random Glucose 207 MG/DL (74-106) Imaging Last Impressions Maxillofacial CT 12/31/16 0000 Signed Impressions: Service Date/Time: Saturday, December 31, 2016 10:39 - CONCLUSION: 1. Abnormal soft tissue swelling and complex fluid collection adjacent to the body of the right mandible. Overall thickness similar to recent MRI. Focal bony erosion through the lateral cortex of the right mandible associated with periapical lucency, most characteristic of periapical abscess. Ash Navarro MD Face MRI 12/29/16 0000 Signed Impressions: Service Date/Time: Thursday, December 29, 2016 15:44 - CONCLUSION: 2.5 cm homogeneous there is soft tissue density with enhancement and surrounding deep and superficial soft tissue edema is consistent with abscess associated with mild erosion of the lateral margin of the mandible. Freddy Vitale MD PE at Discharge GENERAL: Well-nourished, well-developed middle aged male patient. SKIN: Warm and dry. HEAD: Normocephalic. right mandibular swelling, able to open mouth nearly completely, airway intact. EYES: No scleral icterus. No injection or drainage. NECK: Supple, trachea midline. No JVD or lymphadenopathy. CARDIOVASCULAR: Regular rate and rhythm without murmurs, gallops, or rubs. RESPIRATORY: Breath sounds equal bilaterally. No accessory muscle use. GASTROINTESTINAL: Abdomen soft, non-tender, nondistended. EXTREMITIES: No cyanosis, or edema. NEUROLOGICAL: Awake, alert, and oriented x 3. Non-focal. Hospital Course The patient was admitted to the hospital, Accu-Cheks were brought under better control. Hemoglobin A1c was 14%. While hospitalized he was determined to have a right mandibular tooth infection with. Focal abscess. Maxillofacial/oral surgery was consulted. Dr. Weiner came to see him and recommended that the patient follow-up in his office after discharge for definitive treatment. The patient will be discharged today with clindamycin prescription, his insulin, and pain medicine. Case management is arranging a ride for the patient to Dr. Weiner's office today. Pt Condition on Discharge: Stable Discharge Disposition: Discharge Home Discharge Time: > 30 minutes Discharge Instructions DIET: Follow Instructions for: Diabetic Diet Activities you can perform: Regular-No Restrictions New Medications: Clindamycin (Clindamycin) 300 Mg Cap 300 MG PO Q6H Infection #28 Ref 0 CAP Hydrocodone-Acetaminophen (Hydrocodone-Acetaminophen) 5-325 mg Tab 1 TAB PO Q4H PRN pain #20 TAB Changed Medications: Insulin Human Regular Inj (Humulin R Inj) 1,000 Unit/10 Ml Vial 2-12 UNITS SQ TIDACHS Max dose at bedtime:( )units; sugars < 70 (0)units; sugars 150-199, (2)units; sugars 200-249,(4)units; sugars 250-299, (7)units; sugars 300-349,(10)units; sugars more than 349,(12)units. PRN sliding scale #1 Ref 0 BOTTLE (Changed from: 10) Continued Medications: Insulin Human NPH Inj (Novolin N Inj) 100 Unit/Ml Inj 30 UNITS SQ BID diabetes #2 BOTTLE (This prescription has been renewed) Metformin (Metformin) 1,000 Mg Tab 1000 MG PO BIDPC With meals Blood Sugar Management #60 Ref 0 TAB (This prescription has been renewed) Monae Robbins MD Jan 01, 2017 10:25
[2017-01-01] MEDS ORDERED: INSU100V2 SQ (10:43)
[2017-01-01 12:00] VITALS: BP 136/86; PULSE 68; RESP 18; TEMP 98.4; O2SAT 97
== END 2017-01-01 14:17 | disposition home or self-care (01) | DRG 158 ==
LOC: PHED 22:30 → PHEDA 12-29 03:09 → PH3A 12-29 04:48 → OBSVTOIN 12-29 10:33
PROVIDERS: ADMIT Family Medicine; ATTEND Family Medicine
DX: K04.7 Periapical abscess without sinus (principal); N17.9 Acute kidney failure, unspecified; I10 Essential (primary) hypertension; E10.65 Type 1 diabetes mellitus with hyperglycemia; E86.0 Dehydration; Z79.4 Long term (current) use of insulin; F17.210 Nicotine dependence, cigarettes, uncomplicated
CPT/HCPCS: 70487; 70543; 80048; 80053; 81001; 82010; 82800; 82948; 83036; 83605; 85007; 85025; 85027; 87040; 96365; 96375; A9579; J1815; J1885; J2270; J7030; Q9967